=== PATIENT | male | born 1990 | race Caucasian/White ===

== ENCOUNTER 2017-08-07 18:16 | Emergency (ER) | payer SELFPAY ==
[~2017-08-07] VITALS: Ht 175.3 cm; Wt 97.0 kg
[~2017-08-07 18:16] MED LIST: ALBU.5I INH; ALBU0.086 INH; ALBU2.5I INH; ALBU6.7H INH; PRED20 PO
[2017-08-07 18:40] VITALS: BP 128/70; PULSE 115; RESP 16; TEMP 99; O2SAT 98
[2017-08-07] MEDS ORDERED: BACT800T5 PO (19:07)
[2017-08-07] MEDS ORDERED: CEPH-460 PO (19:07)
--- NOTE | 2017-08-07 19:08 | PD ---
HPI Chief Complaint: Skin Problem Time Seen by Provider: 19:06 Travel History International Travel<30 days: No Contact w/Intl Traveler<30days: No Traveled to known affect area: No History of Present Illness HPI 27-year-old male here for evaluation area of skin redness and pain on the anterior right lower leg. It started as a small pimple 6 days ago and gradually got worse. Denies any objective fevers, he has had occasional chills. He has pain, aching, worse with palpation. He has no other complaints. PFSH Past Medical History Respiratory: Yes (asthma) Social History Alcohol Use: Yes Tobacco Use: Yes Allergies-Medications (Allergen,Severity, Reaction): Coded Allergies: No Known Allergies (Unverified Adverse Reaction, Unknown, 08/07/17) Reported Meds & Prescriptions Reported Meds & Active Scripts Active Keflex (Cephalexin) 500 Mg Cap 500 Mg PO Q8H Bactrim DS (Sulfamethoxazole-Trimethoprim) 800-160 Mg Tab 1 Tab PO BID Reported Ventolin Hfa 18 GM Inh (Albuterol Sulfate) 90 Mcg/Act Aer 2 Puff INH Q4H PRN Review of Systems Except as stated in HPI: all other systems reviewed are Neg Physical Exam Narrative GENERAL: Well-nourished male who appears anxious on initial examination SKIN: Warm and dry. Erythema and induration to the anterior right lower leg inferior to the knee joint. There is no fluctuance or drainage. The area will be circled with a surgical marker. HEAD: Atraumatic. Normocephalic. EYES: Pupils equal and round. No scleral icterus. No injection or drainage. ENT: No nasal bleeding or discharge. Mucous membranes pink and moist. NECK: Trachea midline. No JVD. CARDIOVASCULAR: Regular rate and rhythm. No murmur appreciated. RESPIRATORY: No accessory muscle use. Clear to auscultation. Breath sounds equal bilaterally. MUSCULOSKELETAL: No obvious deformities. NEUROLOGICAL: Awake and alert. No obvious cranial nerve deficits. Motor grossly within normal limits. Normal speech. Data Data Last Documented VS Vital Signs Date Time Temp Pulse Resp B/P (MAP) Pulse Ox O2 Delivery O2 Flow Rate FiO2 08/07/17 19:11 109 18 99 Room Air 08/07/17 18:40 99.0 128/70 (89) Orders Orders Sulfamet-Trimeth Ds 800-160 Mg (Bactrim (08/07/17 19:15) Cephalexin (Keflex) (08/07/17 19:15) Ed Discharge Order (08/07/17 19:32) [facility] Medical Decision Making Medical Screen Exam Complete: Yes Emergency Medical Condition: Yes Medical Record Reviewed: Yes Differential Diagnosis Cellulitis, abscess, necrotizing fasciitis, erysipelas Narrative Course Examination is consistent with cellulitis of the right lower leg. He is tachycardic but does not appear septic, he appears very anxious. The patient will be treated as an outpatient with Bactrim and Keflex. The area was circled with a surgical marker. He understands symptoms don't warrant returning to the emergency room. Diagnosis Primary Impression: Cellulitis of right lower extremity Additional Instructions: Medication as prescribed. Warm compresses several times a day 20 minutes at a time. Return for any emergent medical conditions. Med/Other Pt SpecificInfo: Prescription(s) given Scripts Cephalexin (Keflex) 500 Mg Cap 500 MG PO Q8H for Infection, #30 CAP 0 Refills Prov: Joey Barrios MD 08/07/17 Sulfamethoxazole-Trimethoprim (Bactrim DS) 800-160 Mg Tab 1 TAB PO BID for Infection, #20 TAB 0 Refills Prov: Joey Barrios MD 08/07/17 Disposition: 01 DISCHARGE HOME Condition: Stable Tom Mccormack Aug 07, 2017 19:08
[2017-08-07] MEDS ORDERED: VENTAER INH (19:10)
[2017-08-07 19:11] VITALS: PULSE 109; RESP 18; O2SAT 99
[2017-08-07] MEDS ORDERED: CEPHALEXIN MONOHYDRATE 500 MG CAP PO ONE (19:15)
[2017-08-07] MEDS ORDERED: SULFAMETHOXAZOLE-TRIMETHOPRIM DS 800-160 MG TAB PO ONE (19:15)
== END 2017-08-07 19:44 | disposition home or self-care (01) ==
LOC: PHEFT 18:16
DX: L03.115 Cellulitis of right lower limb (principal); Z72.0 Tobacco use
CPT/HCPCS: 99284

== ENCOUNTER 2017-10-22 22:54 | Emergency (ER) | payer SELFPAY ==
[~2017-10-22] VITALS: Ht 175.3 cm; Wt 99.4 kg
[~2017-10-22 22:54] MED LIST changes: -ALBU.5I INH; -ALBU0.086 INH; -ALBU2.5I INH; -ALBU6.7H INH; +BACT800T5 PO; +CEPH-460 PO; -PRED20 PO; +VENTAER INH
[2017-10-22 23:01] VITALS: BP 132/80; PULSE 92; RESP 18; TEMP 98; O2SAT 95
[2017-10-22] MEDS ORDERED: predniSONE 20 MG TAB PO ONE (23:30)
--- NOTE | 2017-10-22 23:30 | PD ---
HPI Chief Complaint: Respiratory Symptoms Time Seen by Provider: 23:28 Travel History International Travel<30 days: No Contact w/Intl Traveler<30days: No Traveled to known affect area: No History of Present Illness HPI The patient is a 27-year-old male with a history of asthma who complains of wheezing for 2 days as well as a cough. He has had a low-grade fever of 99-100 at home. He states it hurts to breathe with bilateral anterior chest pain. He does not smoke. He does have a nebulizer at home with a nebulizer chemicals- albuterol with ipratropium are dated in 2014. PFSH Past Medical History Asthma: Yes Diminished Hearing: No Respiratory: Yes (asthma) Immunizations Current: Yes Tetanus Vaccination: > 5 Years Influenza Vaccination: No Social History Alcohol Use: Yes (occ) Tobacco Use: Yes (/) Substance Use: No Allergies-Medications (Allergen,Severity, Reaction): Coded Allergies: No Known Allergies (Unverified Adverse Reaction, Unknown, 10/22/17) Reported Meds & Prescriptions Reported Meds & Active Scripts Active Keflex (Cephalexin) 500 Mg Cap 500 Mg PO Q8H Bactrim DS (Sulfamethoxazole-Trimethoprim) 800-160 Mg Tab 1 Tab PO BID Reported Ventolin Hfa 18 GM Inh (Albuterol Sulfate) 90 Mcg/Act Aer 2 Puff INH Q4H PRN Review of Systems Except as stated in HPI: all other systems reviewed are Neg Physical Exam Narrative GENERAL: The patient is alert, oriented 3 in no respiratory distress. His vital signs are normal. SKIN: Focused skin assessment warm/dry. HEAD: Atraumatic. Normocephalic. EYES: Pupils equal and round. No scleral icterus. No injection or drainage. ENT: No nasal bleeding or discharge. Mucous membranes pink and moist. NECK: Trachea midline. No JVD. CARDIOVASCULAR: Regular rate and rhythm. No murmur appreciated. RESPIRATORY: No accessory muscle use. Bilateral wheezes are heard in all lung reyes. Breath sounds equal bilaterally. GASTROINTESTINAL: Abdomen soft, non-tender, nondistended. Hepatic and splenic margins not palpable. MUSCULOSKELETAL: No obvious deformities. No clubbing. No cyanosis. No edema. NEUROLOGICAL: Awake and alert. No obvious cranial nerve deficits. Motor grossly within normal limits. Normal speech. PSYCHIATRIC: Appropriate mood and affect; insight and judgment normal. Data Data Last Documented VS Vital Signs Date Time Temp Pulse Resp B/P (MAP) Pulse Ox O2 Delivery O2 Flow Rate FiO2 10/22/17 23:28 Room Air 10/22/17 23:01 98.0 92 18 132/80 (97) 95 Orders Orders Prednisone (Deltasone) (10/22/17 23:30) Influenzae A/B Antigen (10/22/17 23:30) Chest, Pa & Lat (10/22/17 23:30) Albuterol-Ipratropium Neb (Duoneb Neb) (10/22/17 23:30) MDM Medical Decision Making Medical Screen Exam Complete: Yes Emergency Medical Condition: Yes Medical Record Reviewed: Yes Interpretation(s) The chest x-ray shows no acute cardiopulmonary disease and the influenza A/B is negative for flu a and flu B. Differential Diagnosis Pneumonia, bronchitis, bronchitis with bronchospasm, flu syndrome, nonspecific viral syndrome Narrative Course The patient likely has viral bronchitis with bronchospasm. He will need to follow-up with his director institution. I will write him more DuoNeb treatments and put him on a 7 day course of prednisone. Diagnosis Primary Impression: Bronchitis, acute, with bronchospasm Additional Instructions: The prednisone is one tablet daily for 6 days. We gave you your first dose here tonight. Follow-up with your primary care physician within 10 days. Med/Other Pt SpecificInfo: Prescription(s) given Scripts Ipratropium-Albuterol Neb (Duoneb) 0.5-2.5 Mg/3 Ml Neb 1 NEBULE INH Q6HR NEB for Breathing Treatment, #60 NEBULE 0 Refills Prov: Joey Barrios MD 10/23/17 Prednisone (Prednisone) 50 Mg Tab 50 MG PO DAILY for 6 Days, #6 TAB 0 Refills Prov: Joey Barrios MD 10/23/17 Disposition: 01 DISCHARGE HOME Condition: Stable Joey Barrios MD Oct 22, 2017 23:30
[2017-10-22] MEDS: RESP: ALBUTEROL 2.5 MG/IPRATROPIUM 0.5 MG NEB (SCH) INH ×3 (23:34→23:53)
--- NOTE | 2017-10-23 00:26 | RADRPT ---
EXAM DATE/TIME: 10/22/2017 23:35 [facility] COMPARISON: No previous studies available for comparison. INDICATIONS : Short of breath. MEDICAL HISTORY : None. SURGICAL HISTORY : None. ENCOUNTER: Initial ACUITY: 2 days PAIN SCORE: 0/10 LOCATION: Bilateral chest FINDINGS: PA and lateral views of the chest demonstrate the lungs to be symmetrically aerated without evidence of mass, infiltrate or effusion. The cardiomediastinal contours are unremarkable. Osseous structure s are intact. CONCLUSION: No acute disease. Tex Weiss MD on October 23, 2017 at 0:24 Board Certified Radiologist. This report was verified electronically.
[2017-10-23] MEDS ORDERED: IPRASOL INH (00:54)
[2017-10-23] MEDS ORDERED: PRED50 PO (00:54)
[2017-10-23 01:06] VITALS: BP 122/74; TEMP 98.2
== END 2017-10-23 01:07 | disposition home or self-care (01) ==
LOC: PHED 22:54
DX: J20.9 Acute bronchitis, unspecified (principal); R50.9 Fever, unspecified; R07.89 Other chest pain; J45.909 Unspecified asthma, uncomplicated; F17.200 Nicotine dependence, unspecified, uncomplicated
CPT/HCPCS: 71046; 87804; 94640; 94664; 99284; J7512